=== PATIENT | male | born 1950 | race Caucasian/White ===

== ENCOUNTER 2019-01-19 19:50 | Emergency (ER) | payer MEDICARE, OTHER ==
[~2019-01-19] VITALS: Ht 182.9 cm; Wt 115.7 kg
[2019-01-19 20:25] VITALS: BP 143/92
[2019-01-19] MEDS ORDERED: diphenhydrAMINE HCL 25 MG CAPSULE PO ONE (20:45)
[2019-01-19] MEDS ORDERED: DEXAMETHASONE 4 MG TABLET PO ONE (20:45)
[2019-01-19] MEDS ORDERED: PRED20TA PO (21:04)
[2019-01-19] MEDS ORDERED: DIPH25CA58 PO (21:04)
--- NOTE | 2019-01-19 21:04 | PHYS DOC ---
Past Medical History Past Medical History: No Pertinent History Past Surgical History: No Surgical History Additional Information: Nonsmoker Alcohol Use: Occasionally Drug Use: None Adult General Chief Complaint Chief Complaint: INSECT BITE HPI HPI 68-year-old male presents with report of pruritic rash to upper lateral forehead which started yesterday. Patient had noted it was in distribution of where his hat had been. Patient denies knowledge of specific insect or plant exposure. Reports today noted some swelling/edema underneath his left eye which is progres sively gotten worse throughout the day. Reports sensation of increased warmth to this area. Patient was concern for possible infection. Denies eye pain. Denies difficulty moving his eyes. Denies other known exposure. Denies prior history of same. Review of Systems Review of Systems Constitutional: Denies fever or chills Eyes: Denies redness or eye pain HENT: Denies nasal congestion or sore throat Respiratory: Denies cough or shortness of breath Musculoskeletal: Denies back pain or joint pain Integument: Reports pruritic rash to forehead and left periorbital edema Neurologic: Denies headache, focal weakness or sensory changes Complete systems were reviewed and found to be within normal limits, except as documented in this note. Current Medications Current Medications Current Medications Medications (Trade) Dose Ordered Sig/Wiliam Start Time Stop Time Status Last Admin Dose Admin Dexamethasone (Decadron) 10 mg 1X ONCE 01/19/19 20:45 01/19/19 20:48 DC 01/19/19 20:56 10 MG Diphenhydramine HCl (Benadryl) 50 mg 1X ONCE 01/19/19 20:45 01/19/19 20:48 DC 01/19/19 20:56 50 MG Allergies Allergies Allergies Coded Allergies Type Severity Reaction Last Updated Verified No Known Drug Allergies 01/19/19 No Physical Exam Physical Exam Constitutional: Well developed, well nourished, no acute distress, non-toxic appearance HENT: Normocephalic, atraumatic, oropharynx moist Eyes: PERRL, EOMI, conjunctiva normal, no discharge, left periorbital edema noted without signs of infection Neck: Normal range of motion, no tenderness, supple Lungs & Thorax: No respiratory distress Skin: Warm, dry, pruritic rash noted to anterior forehead, left periorbital edema noted as above Back: No tenderness, no CVA tenderness Extremities: No tenderness, ROM intact, no edema Neurologic: Alert and oriented X 3, no focal deficits noted Psychologic: Affect normal, judgement normal Current Patient Data Vital Signs Vital Signs Date Time Temp Pulse Resp B/P (MAP) Pulse Ox O2 Delivery O2 Flow Rate FiO2 01/19/19 20:25 97.6 54 16 143/92 (109) 96 Room Air 97.6 EKG EKG [] Radiology/Procedures Radiology/Procedures [] Course & Med Decision Making Course & Med Decision Making Patient presents with history of present illness and physical exam concerning for allergic reaction. Given location across the bill of his hat more likely contact dermatitis. Cannot exclude plant based. Patient advised to wash his hat. Symptomatic steroid and Benadryl provided. No eye involvement. Afebrile.Patient stable for discharge with outpatient follow-up with PCP. Discussed findings and plan with patient and family, who acknowledge understanding and agreement. Dragon Disclaimer Dragon Disclaimer This electronic medical record was generated, in whole or in part, using a voice recognition dictation system. Departure Departure Impression: Primary Impression: Periorbital edema of left eye Additional Impression: Pruritic rash Disposition: 01 HOME, SELF-CARE Condition: STABLE Referrals: SAVANAH OBANDO MD (PCP) Patient Instructions: Rash, [id number] Scripts Prednisone (PREDNISONE) 20 Mg Tablet 2 TAB PO DAILY, #8 TAB Start this prescription tomorrow, Sunday01/20/19 Prov: KATHY WHITE DO 01/19/19 Diphenhydramine Hcl (BENADRYL) 25 Mg Capsule 1 CAP PO Q6HRS PRN for RASH for 5 Days, #30 CAP Prov: KATHY WHITE DO 01/19/19 Problem Qualifiers KATHY WHITE DO Jan 19, 2019 21:04
== END 2019-01-19 21:12 | disposition home or self-care (01) ==
LOC: ER 19:50
DX: H05.222 Edema of left orbit (principal); R21 Rash and other nonspecific skin eruption; L29.8 Other pruritus
CPT/HCPCS: 99283; J8540; Q0163